=== PATIENT | male | born 1965 | race Caucasian/White ===

== ENCOUNTER 2019-05-17 16:21 | Inpatient (IN) ==
--- NOTE | 2019-05-17 16:49 | PROVIDER DOCUMENTATION ---
HPI-General Adult - General Chief Complaint: Weakness Stated Complaint: GENERALIZED PAIN Time Seen by Provider: 05/17/19 16:37 Source: patient, family Allergies/Adverse Reactions: Patient Allergies Allergy/AdvReac Type Severity Reaction Status Date / Time No Known Allergies Allergy Verified 05/15/19 17:24 Home Medications: Home Medication List Medication Instructions Recorded Confirmed Last Taken Type NK [No Home Medications] 05/15/19 05/17/19 Unknown History - History of Present Illness -Gen Adult Nature of Presenting Problems: 53 yr old M with hx of alcohol abuse, presents with his family for concerns of progressive weakness, and slurred speech for the past several weeks, with acute worsening over the past three days. Pt was recently seen at [facility] and left AMA; lab evaluation there was unremarkable. The pt thinks he may have had a stroke; the pt's family reports that he has had weight loss, weakness, and has been more difficult to understand over the past few days. He drinks daily; liquor of choice is whiskey; he drinks a pint a day, and had some earlier today, though less than what he normally drinks. He denies any chest or abdominal pain; just feels weak all over. Review of Systems - Adult - REVIEW OF SYSTEMS - ADULT Constitutional: reports: see HPI Eyes: reports: double vision Ears, Nose, Mouth & Throat: reports: no symptoms reported Cardiovascular: reports: no symptoms reported Respiratory: reports: no symptoms reported Gastrointestinal: reports: no symptoms reported Genitourinary: reports: no symptoms reported Musculoskeletal: reports: no symptoms reported Integumentary: reports: no symptoms reported Neurological: reports: see HPI Psychiatric: reports: see HPI, alcohol/drug dependence Past History - Adult - PAST MEDICAL HISTORY-ADULT Review of Records: reports: Old Records Reviewed, Nursing Assessment Review Cardiovascular: reports: denies history Respiratory: reports: COPD Gastrointestinal: reports: denies history Genitourinary: reports: denies history Musculoskeletal: reports: chronic pain Neurological: reports: denies history Psychiatric: reports: psychiatric problems Endocrine/Immune: reports: denies history - SOCIAL HISTORY Alcohol Use Frequency: every day Number of drinks per typical drinking period:: 5-10 drinks Living Situation: family Physical Exam-General - PHYSICAL EXAM-ADULT Initial Vital Signs Reviewed: Yes - CONSTITUTIONAL General Appearance: alert, thin, slow to respond - EYES Eyes: PERRL/EOMI - HEAD, EARS, NOSE, MOUTH & THROAT HENMT: normocephalic/atraumatic, moist mucous membranes - RESPIRATORY Respiratory: chest non-tender, lungs clear, normal breath sounds - CARDIOVASCULAR Cardiovascular: regular rate, rhythm - GASTROINTESTINAL (ABDOMEN) Abdominal Exam: normal bowel sounds, non tender, soft - SKIN Integumentary: warm/dry - NEUROLOGIC Neurologic: other (speech is somehwat slurred, can still understand the pt, though with difficulty). negative: facial droop, focal weakness, sensory deficit - PSYCHIATRIC Psych/Mental Status: normal mood/affect, other (oriented to self and place, not time) Progress - PLAN OF CARE/RESULTS Progress/Plan/Lab Results: Vital Signs - 8 hr 05/17/19 16:24 Temperature 98 F Pulse Rate 103 H Respiratory Rate 18 Blood Pressure 144/95 O2 Sat by Pulse Oximetry 100 Result Diagrams: 05/17/19 17:08 05/17/19 17:08 - REASSESSMENT Reassessment #1 Time Reassessed: 19:15 (Other than low Folate, elevated MCV, pt's labs and imagaing are mostly unremarkable for acute processes; had extensive discussion with pt's family at bedside; pt's alcohol level was 0, so there was concern he might go into acute withdrawal; the pt received Ativan for acute stabilization.) - EKG 1 Time of EKG reading by physician:: 17:15 EKG Read and Signed by:: Ethan Mena EKG Interpretation (*Must complete 3 of following elements*): Abnormal Rate: 94 Rhythm: sinus rhythm [place]: normal QRS: normal DC Interval: normal ST Wave: normal - CT/MRI 1 CT Study: Head Impression: See EMR Report CT Results: negative for acute findings - CONSULTS/PCP/HOSPITALIST Notification #1 *Consult/PCP/Hospitalist*: Dr. Duran Time Discussed: 19:30 Consult Disposition: Admit Departure - Departure Date of Disposition Decision: 05/17/19 Time of Disposition Decision: 20:11 DIAGNOSIS: ETOH abuse, Dehydration Disposition: ADMITTED INPATIENT 09 Certified Medical Emergency: Emergent Condition: Fair Referrals and Follow-Ups: None,PCP [Primary Care Provider] - - Critical Care Note This patient required my direct & personal management of CC.: No Attestation - Physician/ JOSE A Attestation Patient care was provided by Advanced Practice Provider:: No The physician spent face to face time with patient:: Yes Advanced Practice Provider documentation review:: Supervising physician onsite and consulted in the evaluation and care of this patient. The physician did have a face to face encounter with the patient.
[2019-05-17 17:41] LABS: BASO# 0.01 X1000 (0.0-0.2); BASO% 0.2 % (0.0-0.8); EOS# 0.02 X1000 (0.0-0.7); EOS% 0.4 % (0.0-10.0); HEMOGLOBIN 12.7 g/dL (14.0-18.0); IMM GRAN# 0.02 X1000 (0.0-0.04); IMM GRAN% 0.4 % (0.0-0.5); LYMPH# 1.61 X1000 (1.2-3.4); LYMPH% 34.3 % (20.5-51.1); MCH 36.2 PG (27-31); MCHC 34.3 g/dL (33-37); MCV 105.4 FL (81-99); MONO% 8.5 % (1.7-9.3); MPV 11.8 FL (7.4-10.4); NEUT# 2.64 X1000 (1.4-6.5); NEUT% 56.2 % (42.2-75.2); PLT 161 X1000 (130-400); RBC 3.51 XMIL (4.7-6.1); RDW 13.1 % (11.5-14.5)
[2019-05-17 18:01] LABS: AGAP 23; ALB/GLOB RATIO 1.9; ALBUMIN 4.4 g/dL (3.5-5.0); ALKALINE PHOSPHATASE 50 U/L (32-122); BUN 15 mg/dL (8-22); CALCIUM 9.8 mg/dL (8.8-10.2); CHLORIDE 90 mmol/L (98-107); COSMO 270; CREATININE 0.9 mg/dL (0.7-1.2); ESTIMATED GFR > 60; GLUCOSE 85 mg/dL (70-104); GOT 35 U/L (10-34); GPT 18 U/L (10-44); POTASSIUM 3.6 mmol/L (3.5-5.1); SODIUM 135 mmol/L (136-145); TCO2 22 mmol/L (25-35); TOTAL PROTEIN 6.7 g/dL (6.3-8.3)
--- NOTE | 2019-05-17 18:05 | Diag Imaging Result Doc PS360 ---
CT HEAD W/O CONTRAST - 05/17/2019 INDICATION: Weakness, Slurred Speech, AMS COMPARISON: None FINDINGS: The ventricles and sulci are normal in size and contour. No intracranial mass or hemorrhage. There is some chronic microvascular ischemia of the cerebral white matter and the rostrum of the corpus callosum. The skull is intact. The sinuses, mastoids, and middle ears are clear. IMPRESSION: Chronic microvascular ischemia. No acute disease. This exam was performed using automated exposure control, adjustment of mA or kV according to patient size, and/or use of iterative reconstruction technique Electronically signed by Chidi Santos 05/17/2019 6:03 PM
[2019-05-17] MEDS ORDERED: FOLIC ACID 1 MG in NS 50 ML IV ONE (18:28)
[2019-05-17 18:36] LABS: URINE SOURCE CATH
[2019-05-17] MEDS ORDERED: ATIVAN IV ONE (18:45)
[2019-05-17] MEDS ORDERED: NICODERM PATCH TD ONE (18:45)
[2019-05-17 18:48] LABS: UR AMPHETAMINES QUAL NONE DETECTED (NONE DETECT); UR BARBITUATES QUAL NONE DETECTED (NONE DETECT); UR BENZODIAZEPIN QUAL NONE DETECTED (NONE DETECT); UR CANNABINOIDS QUAL NONE DETECTED (NONE DETECT); UR COCAINE QUAL NONE DETECTED (NONE DETECT); UR METHADONE QUAL NONE DETECTED (NONE DETECT); UR OPIATES QUAL NONE DETECTED (NONE DETECT); UR OXYCODONE QUAL NONE DETECTED (NONE DETECT); UR PCP QUAL NONE DETECTED (NONE DETECT)
[2019-05-17 19:01] LABS: BILIRUBIN URINE SMALL (NEGATIVE); BLOOD URINE NEGATIVE (NEGATIVE); COLOR ORANGE; GLUCOSE URINE NEGATIVE (NEGATIVE); KETONE URINE 60 mg/dL (NEGATIVE); LEUKOCYTES URINE NEGATIVE (NEGATIVE); NITRITE URINE NEGATIVE (NEGATIVE); PH URINE 6.5; PROTEIN URINE 50 mg/dL (NEGATIVE); SP GRAVITY URINE 1.034; TURBIDITY URINE CLEAR (CLEAR); UR EPITHELIAL CELLS <10 /HPF (<10); URINE BACTERIA 2+ /HPF; URINE RBC <10 /HPF (<10); URINE WBC <10 /HPF (<10); UROBILINOGEN URINE 6 mg/dL (NORMAL)
[2019-05-17 19:09] LABS: URINE CASTS NONE SEEN; URINE CRYSTALS NONE SEEN; URINE SMALL ROUND CELLS NONE SEEN; URINE YEAST NONE SEEN
[2019-05-17] MEDS ORDERED: THIAMINE 100 MG in NS 50 ML IV ONE (22:22)
[2019-05-17] MEDS ORDERED: TYLENOL PO PRN (22:37)
[2019-05-17] MEDS ORDERED: ZOFRAN IV PRN (22:37)
[2019-05-17] MEDS: NS 1,000 ML IV SCH (22:54)
[2019-05-17] MEDS: ATIVAN IV PRN (23:15)
--- NOTE | 2019-05-18 00:59 | HISTORY AND PHYSICAL ---
PRIMARY CARE PHYSICIAN: None. CHIEF COMPLAINT: Confusion. HISTORY OF PRESENTING ILLNESS: A 53-year-old male with a history of chronic alcoholism, usually drinks about a pint of whiskey per day, who had presented to emergency department with confusion and worsening weakness. As per family, he has not had a drink in several days. They thought that he was having some kind of seizure episode. Patient had tried to get into rehab previously. However, due to lack of insurance he was not able to get into a treatment program. The patient was seen in the ER. He was moderately confused and weak and due to his presenting symptoms he will require admission for further management. The patient is a poor historian, however, and most of the history is obtained from family members. PAST MEDICAL HISTORY: Includes chronic alcoholism. PAST SURGICAL HISTORY: None. ALLERGIES: No known drug allergies. CURRENT MEDICATIONS: None. SOCIAL HISTORY: 40+ pack years history of smoking, history of alcohol use daily mostly whiskey. No history of illicit drug use. FAMILY HISTORY: No history of coronary artery disease. REVIEW OF SYSTEMS: Limited due to patient being confused. PHYSICAL EXAMINATION: GENERAL: The patient is resting comfortably. He is without any respiratory distress. VITAL SIGNS: Temperature 98.0 degrees, pulse 103, respirations 18, blood pressure 144/95. HEENT: Atraumatic, normocephalic. PERRLA. NECK: No masses. CHEST: Clear to auscultation. CARDIOVASCULAR: Regular rate and rhythm. ABDOMEN: Soft, positive bowel sounds. EXTREMITIES: No edema. NEUROLOGIC: He is awake and arousable. GENITOURINARY: No bladder distention. SKIN: Warm. LABORATORIES AND STUDIES: WBCs 4.70, hemoglobin 12.7, hematocrit 37.0, platelets 161,000. Sodium 135, potassium 3.6, chloride 90, CO2 is 22, BUN is 15, creatinine 0.9, glucose 85. Plasma ethanol is negative. CT of the head, chronic microvascular ischemia, no acute disease. ASSESSMENT: A 53-year-old male with a history of chronic alcoholism was brought to the emergency department due to worsening confusion and generalized weakness. Apparently, he has been trying to get into an alcohol treatment program. He has not had a drink in several days or so as per family. He started developing worsening weakness and confusion and subsequently he was brought to the emergency department. In the ED, he was evaluated and due to suspicion of alcohol withdrawal he will need admission for further management. 1. Alcohol withdrawal. 2. Generalized weakness. 3. Ongoing tobacco abuse. PLAN: 1. We will admit patient to medical floor with telemetry. 2. Continue with supportive treatment with IV fluids, IV banana bag, thiamine, folate. 3. We will put patient on Ativan for withdrawal symptoms. 4. We will put nicotine patch if he requires it. 5. Put patient on DVT prophylaxis with SCDs. 6. We will continue to follow, reassess and make further recommendation based on patient's clinical course. cc: Yuriy Duran MD
[2019-05-18] MEDS: ATIVAN IV PRN ×5 (04:45→23:34)
[2019-05-18 07:45] LABS: BASO# 0.01 X1000 (0.0-0.2); BASO% 0.2 % (0.0-0.8); EOS# 0.02 X1000 (0.0-0.7); EOS% 0.4 % (0.0-10.0); HEMATOCRIT 34.1 % (42.0-52.0); HEMOGLOBIN 11.5 g/dL (14.0-18.0); IMM GRAN# 0.03 X1000 (0.0-0.04); IMM GRAN% 0.6 % (0.0-0.5); LYMPH# 2.01 X1000 (1.2-3.4); MCH 35.8 PG (27-31); MCHC 33.7 g/dL (33-37); MCV 106.2 FL (81-99); MONO# 0.42 X1000 (0.11-0.59); MPV 11.8 FL (7.4-10.4); NEUT# 2.18 X1000 (1.4-6.5); NEUT% 46.8 % (42.2-75.2); PLT 149 X1000 (130-400); RBC 3.21 XMIL (4.7-6.1); WBC 4.67 X1000 (4.8-10.8)
[2019-05-18 07:55] LABS: AGAP 21; BUN 13 mg/dL (8-22); CALCIUM 9.2 mg/dL (8.8-10.2); CHLORIDE 96 mmol/L (98-107); COSMO 277; CREATININE 0.8 mg/dL (0.7-1.2); ESTIMATED GFR > 60; GLUCOSE 88 mg/dL (70-104); POTASSIUM 3.7 mmol/L (3.5-5.1); SODIUM 139 mmol/L (136-145); TCO2 22 mmol/L (25-35)
[2019-05-18] MEDS: NS 1,000 ML IV SCH ×2 (09:08→15:43)
--- NOTE | 2019-05-18 09:27 | EKG Report ---
Test Performed on : 05/17/2019 5:11:54 PM Test Reason : ED. NO order in [place] Blood Pressure : / mmHG Vent. Rate : 094 BPM Atrial Rate : 094 BPM P-R Int : 116 ms QRS Dur : 070 ms QT Int : 364 ms P-R-T Axes : 048 072 074 degrees QTc Int : 455 ms Normal sinus rhythm. Possible Anterior infarct , age undetermined Abnormal ECG When compared with ECG of 15-MAY-2019 17:12, (Unconfirmed) No significant change was found Unconfirmed Result
[2019-05-18] MEDS ORDERED: M.V.I.-12 10 ML, FOLIC ACID 1 MG, MAGNESIUM SULFATE 1 GM, THIAMINE 100 MG in NS 1,000 ML IV SCH (16:00)
--- NOTE | 2019-05-18 17:54 | PROGRESS NOTE ---
DATE: 05/18/2019 SUBJECTIVE: Today, Srinivas referred to be doing okay. The brother and the mom were at the bedside. He was for the most part sleepy, will barely open his eyes and then go back to sleep. OBJECTIVE: Vital signs: Blood pressure is 114/75, pulse of 85, respiration is 19, temperature 98 degrees. General: Mr. Douglass is a 53-year-old gentleman. He is in bed. No distress. HEENT: Mucosa is pink and moist. Anicteric. Acyanotic. Neck: Supple. Chest: Good air entry bilaterally. There was no crepitations. No rhonchi. Cardiovascular: Regular rate and rhythm. Abdomen: Soft. Bowel sounds present. Extremities: No pedal edema. Central Nervous System: Patient is sleepy but easily arousable, very lethargic. He just goes back to sleep. LABORATORY DATA: WBC is 4.67, hemoglobin is 11.5, platelet count of 149,000. Chemistry is also reviewed, unremarkable. IMAGING STUDIES: Including a CT scan of the head was unremarkable. ASSESSMENT: 1. Alcohol use and abuse with withdrawal symptoms on admission. 2. Generalized weakness and deconditioning. 3. 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 4. Ongoing tobacco use and abuse. 5. Lower extremity numbness due to paresthesia most likely from longstanding alcohol induced peripheral neuropathy. 6. For now, we will continue with the IV fluids, vitamin and mineral supplements, Ativan and we will schedule 10 mg of Valium. We also added gabapentin as part of the approach as part of the withdrawal protocol and also for his alcohol-induced neuropathy. 7. Macrocytosis with folate deficiency noted. cc: Gary Stein MD
[2019-05-18] MEDS: LIBRIUM PO SCH ×2 (19:41→22:29)
[2019-05-18] MEDS: NEURONTIN PO SCH ×2 (19:42→22:30)
[2019-05-19] MEDS: ATIVAN IV PRN ×5 (04:30→21:40)
[2019-05-19 07:30] LABS: HEMATOCRIT 31.2 % (42.0-52.0); HEMOGLOBIN 10.5 g/dL (14.0-18.0); MCH 36.1 PG (27-31); MCHC 33.7 g/dL (33-37); MCV 107.2 FL (81-99); RBC 2.91 XMIL (4.7-6.1); RDW 12.9 % (11.5-14.5); WBC 3.62 X1000 (4.8-10.8)
[2019-05-19 07:44] LABS: INR 1.01; PROTIME 13.4 Seconds (11.0-16.0)
[2019-05-19 07:53] LABS: AGAP 19; ALB/GLOB RATIO 1.8; ALBUMIN 3.6 g/dL (3.5-5.0); ALKALINE PHOSPHATASE 42 U/L (32-122); BUN 9 mg/dL (8-22); CALCIUM 8.8 mg/dL (8.8-10.2); CHLORIDE 100 mmol/L (98-107); COSMO 277; CREATININE 0.8 mg/dL (0.7-1.2); ESTIMATED GFR > 60; GLUCOSE 80 mg/dL (70-104); GOT 42 U/L (10-34); GPT 18 U/L (10-44); MAGNESIUM 1.6 mg/dL (1.5-2.7); PHOSPHORUS 2.6 mg/dL (2.7-4.5); POTASSIUM 3.5 mmol/L (3.5-5.1); SODIUM 140 mmol/L (136-145); TCO2 21 mmol/L (25-35); TOTAL BILIRUBIN 0.59 mg/dL (0.20-1.00); TOTAL PROTEIN 5.6 g/dL (6.3-8.3)
[2019-05-19] MEDS: LIBRIUM PO SCH ×3 (09:13→17:34)
[2019-05-19] MEDS: NEURONTIN PO SCH ×3 (09:13→21:00)
[2019-05-19] MEDS: CLINIMIX E 4.25%-5% SOLUTION 1,000 ML IV SCH ×2 (11:31→19:41)
[2019-05-19] MEDS: NS 1,000 ML IV SCH (11:31)
[2019-05-19] MEDS: MEGACE LIQUID PO SCH ×3 (11:33→21:00)
[2019-05-19] MEDS: NICODERM PATCH TD SCH ×2 (12:07→17:43)
--- NOTE | 2019-05-19 14:34 | PROGRESS NOTE ---
DATE: 05/19/2019 SUBJECTIVE: This morning Mr. Douglass refers to be doing fairly okay. He continues to be mumbling some words, occasionally not very comprehensive. The mother was at the bedside. According to her, Mr. Douglass got slightly agitated overnight and had to be medicated. OBJECTIVE: Vital Signs: This morning her blood pressure is 111/78, pulse of 63, respirations 16, temperature is 98.8 degrees. Patient is saturating 100% on room air. General exam: Mr. Douglass is a 53-year-old gentleman. He is in bed in no distress. HEENT: Mucosa is pink and dry. Anicteric. Acyanotic. Neck: Neck is supple. Chest: Good air entry bilaterally. There were no crepitations, no rhonchi. Cardiovascular: Regular rate and rhythm. No murmurs, no rubs, no gallops. GI: Abdomen is soft, nontender. Bowel sounds present. No hepatosplenomegaly. 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 Speech not very clear, but he will follow basic commands. He is able to open his mouth and stick out his tongue upon command. He is able to extend his upper extremities upon command and there are no tremors. LABORATORY DATA: WBC is 3.62, hemoglobin is 10.5, platelet count of 135. Chemistry is also reviewed, completely within normal range. CURRENT MEDICATIONS: Have all been reviewed. ASSESSMENT: 1. Alcohol use and abuse with withdrawal symptoms on presentation. We will continue with the current medications. 2. Altered mental status on admission secondary to alcohol withdrawal. 3. Generalized weakness and deconditioning. I will consult physical therapy. 4. Alcohol-induced cachexia with a body mass index of 15.5 associated with protein calorie malnutrition. The patient has been started on Clinimix. We will continue replacing his vitamins and mineral needs. 5. Lower extremity peripheral neuropathy, presumably alcohol induced. Patient is on gabapentin. 6. Ongoing tobacco use and abuse prior to hospitalization. The patient has been counseled, and we have offered nicotine patch. 7. Macrocytosis with folate deficiency. We will continue with replacement. 8. Clinical volume depletion. Will continue with intravenous fluids. 9. Dysarthric speech. I think this is all related to his alcohol use. Unsure if Mr. Douglass has developed Korsakoff. His initial CAT scan was unremarkable. If he continues to slur on his speech, I think we will have to do an MRI for a more critical look at the brain parenchyma. PLAN: So, today Mr. 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 We are going to continue his hydration. We will continue with his caloric and vitamin/mineral replacement, get physical therapy to evaluate Mr. Douglass. We have consulted Social Work and Case Management for possible rehab placement for alcohol abuse. We will re-evaluate Mr. Douglass tomorrow and see how he is doing clinically. cc: Gary Stein MD MTDD
[2019-05-19] MEDS: M.V.I.-12 10 ML, FOLIC ACID 1 MG, MAGNESIUM SULFATE 1 GM, THIAMINE 100 MG in NS 1,000 ML IV SCH (17:33)
[2019-05-20] MEDS: ATIVAN IV PRN ×6 (01:20→23:24)
[2019-05-20] MEDS: CLINIMIX E 4.25%-5% SOLUTION 1,000 ML IV SCH ×2 (05:32→16:23)
[2019-05-20 07:48] LABS: AGAP 14; ALBUMIN 3.6 g/dL (3.5-5.0); BUN 12 mg/dL (8-22); CALCIUM 9.1 mg/dL (8.8-10.2); CHLORIDE 103 mmol/L (98-107); COSMO 284; CREATININE 0.6 mg/dL (0.7-1.2); ESTIMATED GFR > 60; GLUCOSE 126 mg/dL (70-104); MAGNESIUM 1.7 mg/dL (1.5-2.7); PHOSPHORUS 3.4 mg/dL (2.7-4.5); POTASSIUM 3.4 mmol/L (3.5-5.1); SODIUM 142 mmol/L (136-145); TCO2 25 mmol/L (25-35)
[2019-05-20 07:50] LABS: HEMATOCRIT 33.1 % (42.0-52.0); HEMOGLOBIN 11.8 g/dL (14.0-18.0); MCH 37.3 PG (27-31); MCHC 35.6 g/dL (33-37); MCV 104.7 FL (81-99); MPV 12.1 FL (7.4-10.4); RBC 3.16 XMIL (4.7-6.1); RDW 12.8 % (11.5-14.5); WBC 6.05 X1000 (4.8-10.8)
[2019-05-20] MEDS: NEURONTIN PO SCH ×3 (09:52→23:24)
[2019-05-20] MEDS: NICODERM PATCH TD SCH (09:53)
[2019-05-20] MEDS: MEGACE LIQUID PO SCH ×3 (09:53→23:24)
[2019-05-20] MEDS: LIBRIUM PO SCH ×3 (09:53→16:23)
[2019-05-20] MEDS: NS 1,000 ML IV SCH (10:10)
[2019-05-20] MEDS: ASPIRIN PO SCH (14:06)
--- NOTE | 2019-05-20 16:21 | PROGRESS NOTE ---
DATE: 05/20/2019 INTERVAL HISTORY: Patient remains slightly sleepy but awake. Did again have some agitation overnight, but fairly with it this morning. Still having significant difficulty with speech, but what words can be made out seem to be largely appropriate. Follows commands pretty well with right upper extremity and legs, but less so with the left upper extremity. When not being asked to perform specific movements, he seems to use the left arm fairly well, so uncertain how much of this is him not quite understanding. No other acute events. REVIEW OF SYSTEMS: Unable to obtain secondary to patient's mental status. LABS: WBC 6.0, hemoglobin 11.8, hematocrit 33.1, platelets 147,000. Sodium 142, potassium 3.4, bicarb 25, BUN 12, creatinine 0.6, glucose 126. VITAL SIGNS: T-max 98.8 degrees, pulse 82, respirations 18, blood pressure 110/80, O2 saturation 99% on room air. PHYSICAL EXAMINATION: General: No acute distress. Vital signs: As above. HEENT: Normocephalic, atraumatic. Moist mucous membranes. No cervical adenopathy. Cardiovascular: Regular rate and rhythm. No murmurs noted. Pulmonary: Clear to auscultation bilaterally. No wheezing, rales, or rhonchi. Abdomen: Soft, nontender, nondistended. Bowel sounds positive. Extremities: Peripheral pulses intact. No clubbing or cyanosis. Neurologic: Speech markedly slurred. Intermittently follows commands. Appears somewhat weak with the left upper extremity but otherwise, no focal deficits identified. Psychiatric: Patient awake, although sleepy and tends to doze off during conversation level. Following commands intermittently. Seems to do better with commands to the right upper extremity than to the left. Does answer orientation questions appropriately, although it is quite difficult to understand his speech and his responses tend to be quite short. ASSESSMENT AND PLAN: 1. Alcohol abuse and withdrawal. Continue withdrawal medications. Uncertain how much of his current symptoms are due to withdrawal versus other etiology. Continue to monitor. 2. Toxic encephalopathy. On admission, likely due to alcohol abuse and withdrawal. Some concern for Wernicke-Korsakoff syndrome. 3. Slurred speech and possible left upper extremity weakness. Patient still with markedly slurred speech, although mental status is quite a bit improved. Difficult for me to tell whether he is truly weak in the left upper extremity or if he is just not following commands well all the time. But as this is ongoing and he may have some focal weakness, we are going to go ahead and put him on aspirin and get an MRI in the morning. 4. Cachexia, alcohol induced. BMI 15.5. For the last 3 years has been mostly drinking with little nutritional intake otherwise. On Clinimix currently. Starting to wake up. We will see how much we can get him to eat. If his mental status continues to be an issue, may have to consider other options. 5. Tobacco abuse. Patient has been counseled on cessation. We will discuss again when his mental status is better. 6. Anemia. Likely nutritional with folate deficiency noted. No signs or symptoms of active bleeding noted. Continue to monitor labs. 7. Dehydration. Improved with IV fluids. 8. Peripheral neuropathy. Continue home gabapentin at low dose for now but if he continues to be too sedated, may have to hold that.
[2019-05-20] MEDS: M.V.I.-12 10 ML, FOLIC ACID 1 MG, MAGNESIUM SULFATE 1 GM, THIAMINE 100 MG in NS 1,000 ML IV SCH (16:23)
[2019-05-21] MEDS: ATIVAN IV PRN ×5 (03:28→22:32)
[2019-05-21] MEDS: CLINIMIX E 4.25%-5% SOLUTION 1,000 ML IV SCH ×2 (03:28→11:49)
[2019-05-21] MEDS: MEGACE LIQUID PO SCH ×2 (08:10→20:34)
[2019-05-21] MEDS: NICODERM PATCH TD SCH (08:10)
[2019-05-21] MEDS: ASPIRIN PO SCH (08:10)
[2019-05-21] MEDS: LIBRIUM PO SCH ×4 (08:10→20:34)
[2019-05-21] MEDS: NEURONTIN PO SCH ×2 (08:10→20:34)
--- NOTE | 2019-05-21 10:47 | Diag Imaging Result Doc PS360 ---
EXAM: MRI BRAIN W/O CONTRAST HISTORY: slurred speech. ? LUE weakness. TECHNIQUE: MRI brain without contrast. Axial, sagittal, and coronal images obtained in multiple sequences. COMPARISON: CT from 05/17/2019 FINDINGS: No recent infarct. Minimal chronic microvascular ischemic changes. No mass or midline shift. No hydrocephalus. No ureteral or subdural fluid collection. No sinus opacification. Normal orbits. IMPRESSION: No recent infarct. Electronically signed by Paulo Camara 05/21/2019 10:45 AM
[2019-05-21] MEDS: NS 1,000 ML IV SCH (11:49)
[2019-05-21] MEDS: POTASSIUM CHLORIDE 20 MEQ/SWI 20 MEQ/100 ML IVPB IV SCH ×2 (13:32→15:33)
[2019-05-21] MEDS: M.V.I.-12 10 ML, FOLIC ACID 1 MG, MAGNESIUM SULFATE 1 GM, THIAMINE 100 MG in NS 1,000 ML IV SCH (17:12)
--- NOTE | 2019-05-21 18:13 | PROGRESS NOTE ---
DATE: 05/21/2019 INTERVAL HISTORY: Patient's mental status continues to improve slowly. Still pretty sleepy but speech a little clearer, although still somewhat slurred. Much more cooperative with the left upper extremity and strength more symmetric. P.o. intake still only slightly improved, however. REVIEW OF SYSTEMS: Twelve point review of systems negative except as per interval history. VITAL SIGNS: T-max 98.8 degrees, pulse 82, respirations 16, blood pressure 117/83, O2 saturation 99% on room air. IMAGING: MRI brain essentially unremarkable. PHYSICAL EXAMINATION: General: No acute distress. Vital signs: As above. HEENT: Normocephalic, atraumatic. Moist mucous membranes. Cardiovascular: Regular rate and rhythm. No murmurs noted. Pulmonary: Clear to auscultation bilaterally. No wheezing, rales, or rhonchi. Abdomen: Soft, nontender, nondistended. Bowel sounds positive. Extremities: Peripheral pulses intact. No clubbing or cyanosis. Neurologic: Slurring of speech quite a bit improved. Following commands better, although does require repeat prompting sometimes. Strength more symmetric than previous. No new focal deficits identified. Psychiatric: Patient awake, although sleepy. Still dozing off during conversation intermittently. Following commands a little better. Does answer orientation questions appropriately and speech is a little easier to understand. Responses remain quite terse with little to no spontaneous verbalization. ASSESSMENT AND PLAN: 1. Alcohol abuse and withdrawal. Continue withdrawal medications. Approaching end of his Librium taper. MRI obtained given continued slurred speech and possible left upper extremity weakness yesterday, but MRI negative and symptoms appear to be improving, so likely all related to alcohol withdrawal and the sedating medications necessary to control his withdrawal. 2. Toxic encephalopathy. Noted on admission. Improving although still somewhat present. Likely due to alcohol abuse and withdrawal. Some concern for Wernicke-Korsakoff , but MRI unremarkable and patient improving, although slowly. 3. Slurred speech, possible left upper extremity weakness. Some concern for stroke, but MRI negative, as above. Likely all due to his encephalopathy. Improving slowly. 4. Cachexia, severe protein calorie malnutrition. Likely due to alcohol abuse and poor p.o. intake. BMI 15.5 on admission. Poor p.o. intake for 3 years other than alcohol. On Clinimix currently. Waking up slowly and has had slightly better p.o. intake today, but still remains fairly poor overall. 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 Otherwise, may need to consider other options, possibly including feeding tube. 5. Tobacco abuse. Patient has been counseled on cessation but will need to repeat again once his mental status is further improved. 6. Anemia. Likely nutritional with folate deficiency noted. Continue replacement. 7. Dehydration. Essentially resolved now with IV fluid. 8. Peripheral neuropathy. Continue home low-dose gabapentin. 9. Deconditioning, likely related to alcohol abuse and malnutrition. Working with PT somewhat. We will see how he does over the next few days as he continues to wake up. Pending how he does, may or may not need rehab placement.
[2019-05-22] MEDS: CLINIMIX E 4.25%-5% SOLUTION 1,000 ML IV SCH ×3 (00:37→17:12)
[2019-05-22] MEDS: ASPIRIN PO SCH (08:31)
[2019-05-22] MEDS: LIBRIUM PO SCH ×2 (08:31→23:24)
[2019-05-22] MEDS: NEURONTIN PO SCH ×2 (08:31→23:24)
[2019-05-22] MEDS: NICODERM PATCH TD SCH ×2 (08:31→16:59)
[2019-05-22] MEDS: MEGACE LIQUID PO SCH ×2 (08:31→23:25)
[2019-05-22 13:06] LABS: BASO# 0.01 X1000 (0.0-0.2); BASO% 0.2 % (0.0-0.8); EOS# 0.03 X1000 (0.0-0.7); EOS% 0.5 % (0.0-10.0); HEMATOCRIT 30.1 % (42.0-52.0); HEMOGLOBIN 10.1 g/dL (14.0-18.0); IMM GRAN# 0.02 X1000 (0.0-0.04); IMM GRAN% 0.3 % (0.0-0.5); LYMPH# 1.53 X1000 (1.2-3.4); LYMPH% 25.8 % (20.5-51.1); MCH 35.7 PG (27-31); MCHC 33.6 g/dL (33-37); MCV 106.4 FL (81-99); MONO# 0.77 X1000 (0.11-0.59); MPV 11.9 FL (7.4-10.4); NEUT# 3.57 X1000 (1.4-6.5); NEUT% 60.2 % (42.2-75.2); PLT 165 X1000 (130-400); RBC 2.83 XMIL (4.7-6.1); RDW 13.6 % (11.5-14.5); WBC 5.93 X1000 (4.8-10.8)
[2019-05-22 13:26] LABS: AGAP 12; BUN 20 mg/dL (8-22); CALCIUM 9.2 mg/dL (8.8-10.2); CHLORIDE 104 mmol/L (98-107); COSMO 283; CREATININE 0.7 mg/dL (0.7-1.2); ESTIMATED GFR > 60; GLUCOSE 108 mg/dL (70-104); POTASSIUM 4.4 mmol/L (3.5-5.1); SODIUM 140 mmol/L (136-145); TCO2 24 mmol/L (25-35)
--- NOTE | 2019-05-22 16:09 | PROGRESS NOTE ---
DATE: 05/22/2019 INTERVAL HISTORY: Patient with slow but steady improvement in his mental status. Answering occasionally with two words now. Slurred speech continues to gradually improve as well. Still pretty weak throughout. Has complained to his mother about nicotine cravings despite his current 14 mg patch. No acute events overnight. No other new complaints. REVIEW OF SYSTEMS: Twelve point review of systems negative except as per interval history. LABS: WBC 5.9, hemoglobin 10.1, hematocrit 30.1, platelets 165,000. Sodium 140, potassium 4.4, bicarb 24, BUN 20, creatinine 0.7, glucose 108. VITALS: Temperature maximum 98.4 degrees, pulse 80, respirations 18, blood pressure 115/83, O2 saturation 100% on room air next. PHYSICAL EXAMINATION: General: No acute distress. Vitals: As above. HEENT: Normocephalic, atraumatic. Moist mucous membranes. Cardiovascular: Regular rate and rhythm. No murmurs noted. Pulmonary: Clear to auscultation bilaterally. No wheezing, rales, or rhonchi. Abdomen: Soft, nontender, nondistended. Bowel sounds positive. Extremities: Peripheral pulses intact. No clubbing or cyanosis. Neurologic: Slurring of speech still present but continues to improve slowly. Still globally weak but strength pretty symmetric at this point. No new focal deficits. Psychiatric: Patient awake, fairly alert, although sometimes requires repeated prompting to sort of zone in and to answer questions or perform commands. Affect remains quite flat. Still little to no spontaneous verbalization, although he is doing pretty well with prompting, as above. ASSESSMENT AND PLAN: 1. Alcohol abuse and withdrawal. Continue withdrawal medications, but today should be his last day of Librium. MRI without evidence of stroke or clear Wernicke-Korsakoff syndrome. Speech and mental status do appear to be improving, although quite slowly. Will continue minimizing sedating medications as much as we can and hopefully he will continue to improve. 2. Toxic encephalopathy. Noted on admission. Improving slowly as above, likely due to alcohol abuse and withdrawal. 3. Cachexia, severe protein calorie malnutrition. Likely due to alcohol abuse and poor oral intake for a prolonged period of time. BMI 15.5 on admission. On Clinimix currently. A little better oral intake over the last couple of days, but overall nutritional status remains quite poor. Intake thus far has been most limited to sugar. We will try to encourage protein intake and monitor. 4. Tobacco abuse. The patient has been counseled on cessation. Complaining of cravings on 14 mg patch. Will increase patch to 21 and monitor. 5. Dehydration resolved with intravenous fluids. 6. Anemia, likely nutritional with folate deficiency. Continue replacement. Iron studies pending. 7. Peripheral neuropathy. Continue home low-dose gabapentin. 8. Deconditioning, likely related to alcohol abuse and malnutrition. Still remains quite weak globally. We will see how he does with physical therapy as his mental status continues to improve. Ideally would likely need rehab placement, but patient with no insurance and that is unlikely to be an option. We will do as much therapy as we can prior to discharge and see where we end up and what options there may be.
[2019-05-22] MEDS: NS 1,000 ML IV SCH (17:02)
[2019-05-22] MEDS: M.V.I.-12 10 ML, FOLIC ACID 1 MG, MAGNESIUM SULFATE 1 GM, THIAMINE 100 MG in NS 1,000 ML IV SCH (17:12)
[2019-05-23] MEDS: CLINIMIX E 4.25%-5% SOLUTION 1,000 ML IV SCH ×3 (03:03→13:50)
[2019-05-23 08:11] LABS: AGAP 12; ALBUMIN 3.3 g/dL (3.5-5.0); BUN 25 mg/dL (8-22); CHLORIDE 106 mmol/L (98-107); COSMO 284; CREATININE 0.8 mg/dL (0.7-1.2); ESTIMATED GFR > 60; GLUCOSE 137 mg/dL (70-104); PHOSPHORUS 4.8 mg/dL (2.7-4.5); POTASSIUM 4.4 mmol/L (3.5-5.1); SODIUM 139 mmol/L (136-145); TCO2 21 mmol/L (25-35)
[2019-05-23] MEDS: NS 1,000 ML IV SCH (10:52)
[2019-05-23] MEDS: NEURONTIN PO SCH ×2 (10:55→22:33)
[2019-05-23] MEDS: MEGACE LIQUID PO SCH ×2 (10:55→22:33)
[2019-05-23] MEDS: NICODERM PATCH TD SCH (10:55)
[2019-05-23] MEDS: ASPIRIN PO SCH (10:55)
[2019-05-23 11:22] LABS: IRON SATURATION 20 %; TIBC 163 ug/dL; TOTAL IRON 33 ug/dL (53-167); UNBOUND IRON 130 ug/dL (112-346)
[2019-05-23] MEDS ORDERED: MILK OF MAGNESIA PO PRN (11:39)
[2019-05-23] MEDS: MIRALAX PO SCH ×2 (12:28→22:33)
--- NOTE | 2019-05-23 13:14 | PROGRESS NOTE ---
DATE: 05/23/2019 INTERVAL HISTORY: The patient 's speech quite a bit improved today; actually putting sentences together. Mental status also continues to improve slowly. Diet a little better. Still kind of fixated on sweets, but the amount of his p.o. intake is quite a bit improved. No acute events overnight. No other new complaints. Remains pretty weak, especially in the lower extremities. REVIEW OF SYSTEMS: Twelve point review of systems negative, except as per interval history. LABS: Sodium 139, potassium 4.4. BUN 25, creatinine 0.8, glucose 137. VITALS: T-max 98.5 degrees, pulse 82, respirations 16, blood pressure 93/64m O2 saturation 99% on room air. PHYSICAL EXAMINATION: General: No acute distress. Chronically ill appearing. Vitals: As above. HEENT: Normocephalic, atraumatic. Moist mucous membranes. Cardiovascular: Regular rate and rhythm. No murmurs noted. Pulmonary: Clear to auscultation bilaterally. No wheezing, rales, or rhonchi. Abdomen: Soft, nontender, nondistended. Bowel sounds positive. Extremities: Peripheral pulses intact. No clubbing or cyanosis. Neurologic: Slurring of speech, almost resolved. Speech remains slow, globally weak, a little more in the bilateral lower extremities. No new focal deficits. Psychiatric: Patient awake, alert. Far more communicative, pretty cooperative today, slightly less flat affect. ASSESSMENT AND PLAN: 1. Alcohol abuse withdrawal. Weaned off of Librium. MRI without evidence of stroke or clear evidence of Wernicke-Korsakoff syndrome. Speech and mental status improving; speech actually quite a bit better today. Continue supportive care. 2. Toxic encephalopathy noted on admission. Improvement has been slow, but beginning to approach baseline. Continue to monitor. 3. Cachexia, severe protein calorie malnutrition, asthenia. Likely due to alcohol abuse, poor oral intake for a prolonged period of time, approximately 3 years. Body mass index 15.5 on admission. He is on Clinimix currently. Amount of oral intake has improved quite a bit over the last couple days, but still mostly candy brought in by his family. Discussed the importance of getting some protein and vitamins in him. Since his mental status is improving, we may have it a little more likely of getting him to eat something with some nutrition to it. Continue to work with physical therapy. Try to mobilize patient as he is self-pay, and rehabilitation is probably not an option. 4. Tobacco abuse. Patient reports less craving since being bumped up to 21 mg patch. Continue to monitor. 5. Dehydration, resolved with intravenous fluids. 6. Anemia likely nutritional with folate deficiency, iron levels borderline, but since his oral intake is beginning to improve, we will hold off on replacement for now. 7. Peripheral neuropathy. Continue home low-dose gabapentin. DISPOSITION: Likely home once his oral intake is reasonable and he is able to ambulate with a walker. Ideally to go to rehab, but with no insurance it is likely not an option.
[2019-05-23] MEDS: M.V.I.-12 10 ML, FOLIC ACID 1 MG, MAGNESIUM SULFATE 1 GM, THIAMINE 100 MG in NS 1,000 ML IV SCH (16:20)
[2019-05-24] MEDS: CLINIMIX E 4.25%-5% SOLUTION 1,000 ML IV SCH ×2 (02:45→13:30)
[2019-05-24 07:40] LABS: AGAP 13; ALBUMIN 3.7 g/dL (3.5-5.0); BUN 25 mg/dL (8-22); CALCIUM 9.5 mg/dL (8.8-10.2); CHLORIDE 105 mmol/L (98-107); COSMO 284; CREATININE 0.9 mg/dL (0.7-1.2); ESTIMATED GFR > 60; GLUCOSE 101 mg/dL (70-104); PHOSPHORUS 5.3 mg/dL (2.7-4.5); POTASSIUM 5.5 mmol/L (3.5-5.1); SODIUM 140 mmol/L (136-145); TCO2 22 mmol/L (25-35)
[2019-05-24] MEDS: MIRALAX PO SCH ×2 (08:53→22:31)
[2019-05-24] MEDS: MEGACE LIQUID PO SCH ×2 (08:53→22:31)
[2019-05-24] MEDS: NEURONTIN PO SCH ×2 (08:53→22:31)
[2019-05-24] MEDS: NICODERM PATCH TD SCH (08:53)
[2019-05-24] MEDS: ASPIRIN PO SCH (08:53)
--- NOTE | 2019-05-24 15:45 | PROGRESS NOTE ---
DATE: 05/24/2019 INTERVAL HISTORY: No acute events overnight. SUBJECTIVE: Mr. Douglass denies any new complaints. He was able to work with physical therapy today and walk up to the door, but he needed a lot of help, walker and physical therapy's support. He feels significantly weak as per the family members at bedside. Patient denies any chest pain or shortness of breath, any cough. He states he was able to eat a little bit today, probably 25% of his meals. We discussed about discontinuing IV nutrition and watching him for 24 hours. VITAL SIGNS: Temperature 98.4 degrees, pulse 93, respiratory rate 16, blood pressure 92/65. He is saturating 100% on room air. PHYSICAL EXAMINATION: General: He is not in any acute distress, cachectic. HEENT: Oral cavity is moist. Lungs: Air entry bilaterally equal. No wheeze, rhonchi, crackles. Cardiovascular: S1, S2 normal. No murmur or gallop. Abdomen: Soft, nontender. Extremities: No lower extremity edema. Skin: He had generalized scaling of his skin. Neurologic: He is alert. He is answering most questions appropriately. He is able to lift both upper and lower extremities above ground level while lying down. LABS: Suggestive of a potassium of 5.5. He has slightly elevated BUN and creatinine. MICROBIOLOGY: His urine was growing a bacteria, though he denies any urinary symptoms on my encounter. ASSESSMENT AND PLAN: 1. Alcohol use disorder with alcohol withdrawal on presentation. MRI did not have clear evidence of Wernicke-Korsakoff syndrome. He has been off Librium. He is currently alert, though he does have intermittent confusion. However, his toxic and acute encephalopathy appears to have resolved. I will continue him on megestrol for appetite stimulation, thiamine and multivitamin and mechanical soft oral diet. I also encouraged him to continue to take adequate oral fluids. I will stop intravenous fluids and intravenous Clinimix today. I will keep him on MiraLAX to avoid constipation. I will also start him on enoxaparin for DVT prophylaxis. 2. 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 Patient has been started on gabapentin which I will continue. 3. Tobacco abuse. Continue nicotine patch. 4. Likely folate deficiency, nutritional anemia. Continue multivitamin with folic acid supplementation. 5. Disposition. My plan is to watch the patient for worsening electrolytes without intravenous fluids. I want to make sure he does not develop acute kidney injury with a rise in BUN tomorrow. If he is able to maintain adequate oral intake, the patient could be discharged in next 24 to 48 hours, depending on functional status. Plan of care discussed with the patient and his family. His family member at bedside currently is concerned that he may not be ready for discharge and is requesting to keep patient inside the hospital for a few more days and I explained to her that we would take 1 day at a time, though definitely he was not ready today for discharge. cc: Edmund Lynch MD MTDD
[2019-05-24] MEDS: LOVENOX SUBQ SCH (22:31)
[2019-05-25 08:08] LABS: AGAP 13; BUN 21 mg/dL (8-22); CALCIUM 9.8 mg/dL (8.8-10.2); CHLORIDE 102 mmol/L (98-107); COSMO 277; CREATININE 0.9 mg/dL (0.7-1.2); ESTIMATED GFR > 60; GLUCOSE 109 mg/dL (70-104); POTASSIUM 5.1 mmol/L (3.5-5.1); SODIUM 137 mmol/L (136-145); TCO2 22 mmol/L (25-35)
[2019-05-25] MEDS: NICODERM PATCH TD SCH (08:59)
[2019-05-25] MEDS: VITAMIN B-1 PO SCH (08:59)
[2019-05-25] MEDS: THERA M PLUS PO SCH (08:59)
[2019-05-25] MEDS: MIRALAX PO SCH ×2 (08:59→20:12)
[2019-05-25] MEDS: MEGACE LIQUID PO SCH ×2 (08:59→20:12)
[2019-05-25] MEDS: NEURONTIN PO SCH ×2 (09:00→20:11)
[2019-05-25] MEDS: ASPIRIN PO SCH (09:00)
--- NOTE | 2019-05-25 16:48 | PROGRESS NOTE ---
DATE: 05/25/2019 SUBJECTIVE: Patient reports feeling fine. According to nursing staff, the patient continues to be profoundly weak and needs assistance from Physical Therapy to put him in the bed. OBJECTIVE: Vital Signs: Temperature is 98.2 degrees, heart rate 91, respiratory rate 18, blood pressure 93/63, O2 saturation 100% on room air. General: This is a chronically ill-appearing and malnourished, 53-year-old, male, lying in bed in no acute distress. Cardiovascular: S1, S2 heard. No murmurs, gallops, or rubs. Regular rate and rhythm. Respiratory: Clear bilaterally to auscultation. No work of breathing or using accessory muscles. Abdomen: Soft, nontender to palpation. Bowel sounds present. No organomegaly. Extremities: No clubbing, cyanosis, or edema. Peripheral pulses present in both legs. Skin: There is generalized scaling of the skin. Neurological: Patient is awake, alert. Moves 4 extremities spontaneously. LABORATORY DATA: No CBC recently done and BMP is unremarkable. ASSESSMENT AND PLAN: 1. Alcohol use disorder with alcohol withdrawal on presentation. The patient is feeling very weak. MRI that we have done a few days ago, did rule out Wernicke-Korsakoff syndrome. At this time, I am planning to continue with megestrol for appetite stimulation, thiamine, multivitamins, and patient is on a GI soft diet. Clinimix has been stopped. We will continue with same management. 2. 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 The patient is on gabapentin. We will continue to monitor. 3. Tobacco abuse. We will continue with nicotine patch. 4. Folate deficiency and nutritional anemia. We will continue with multivitamins. 5. Disposition. The patient definitely needs to go to rehab, but he does not have any insurance. So, one option that we have is to send this patient to [facility] [place] to continue receiving physical therapy and occupational therapy. cc: Josef Pierson MD
[2019-05-25] MEDS: LOVENOX SUBQ SCH (20:11)
[2019-05-26 08:07] LABS: AGAP 14; ALBUMIN 3.9 g/dL (3.5-5.0); BUN 27 mg/dL (8-22); CALCIUM 9.9 mg/dL (8.8-10.2); CHLORIDE 102 mmol/L (98-107); COSMO 283; ESTIMATED GFR > 60; GLUCOSE 107 mg/dL (70-104); MAGNESIUM 2.1 mg/dL (1.5-2.7); PHOSPHORUS 5.6 mg/dL (2.7-4.5); POTASSIUM 4.9 mmol/L (3.5-5.1); SODIUM 139 mmol/L (136-145); TCO2 23 mmol/L (25-35)
[2019-05-26] MEDS: MIRALAX PO SCH ×2 (09:51→20:05)
[2019-05-26] MEDS: NICODERM PATCH TD SCH (09:51)
[2019-05-26] MEDS: MEGACE LIQUID PO SCH ×2 (09:52→20:04)
[2019-05-26] MEDS: ASPIRIN PO SCH (09:52)
[2019-05-26] MEDS: VITAMIN B-1 PO SCH (09:52)
[2019-05-26] MEDS: THERA M PLUS PO SCH (09:52)
[2019-05-26] MEDS: NEURONTIN PO SCH ×2 (09:52→20:04)
--- NOTE | 2019-05-26 12:07 | PROGRESS NOTE ---
DATE: 05/26/2019 SUBJECTIVE: Patient reports feeling fine. Reports still feeling profoundly weak. Denies any other complaints. OBJECTIVE: Vital Signs: Temperature 97.3 degrees, heart rate 100, respiratory rate 18, blood pressure 107/77, O2 saturation 100% on room air. General Examination: This is a chronically ill-appearing and malnourished, 54-year-old male, lying in bed in no acute distress. Cardiovascular exam: S1, S2 heard. No murmurs, gallops, or rubs. Regular rate and rhythm. Respiratory exam: Clear bilaterally to auscultation. No work of breathing or using accessory muscles. Abdomen: Soft, nontender to palpation. Bowel sounds present. No organomegaly. Extremities: No clubbing, cyanosis, or edema. Peripheral pulses present in both legs. Skin: There is generalized scaling of the skin. Neurological exam: Patient is awake, alert, moves 4 extremities. LABORATORY DATA: Reviewed. ASSESSMENT AND PLAN: 1. Alcohol abuse with alcohol withdrawal on presentation. This patient is feeling much better, but feeling very weak. MRI of the brain has been done a few days ago to rule out Wernicke- Korsakoff, but has been unremarkable. At this point, we will continue multivitamins and Megestrol for appetite stimulation. We will continue with same management. 2. Alcohol neuropathy. We will continue with gabapentin. 3. Tobacco abuse. Patient is on nicotine patch. We will continue to monitor. 4. Folate deficiency. Nutritional anemia. We will continue with multivitamin. 5. Disposition: The patient definitely needs to go to rehabilitation because he is profoundly weak. Because he does not have any insurance, we will send this patient to [facility] to continue receiving physical therapy and occupational therapy as well. cc: Josef Pierson MD
[2019-05-26] MEDS: LOVENOX SUBQ SCH (20:04)
[2019-05-27 06:54] LABS: AGAP 13; ALBUMIN 3.9 g/dL (3.5-5.0); BUN 31 mg/dL (8-22); CALCIUM 9.7 mg/dL (8.8-10.2); CHLORIDE 105 mmol/L (98-107); COSMO 283; CREATININE 0.9 mg/dL (0.7-1.2); ESTIMATED GFR > 60; GLUCOSE 113 mg/dL (70-104); PHOSPHORUS 5.4 mg/dL (2.7-4.5); POTASSIUM 4.3 mmol/L (3.5-5.1); SODIUM 138 mmol/L (136-145); TCO2 20 mmol/L (25-35)
[2019-05-27] MEDS: NEURONTIN PO SCH ×2 (09:14→21:04)
[2019-05-27] MEDS: NICODERM PATCH TD SCH (09:14)
[2019-05-27] MEDS: MEGACE LIQUID PO SCH ×2 (09:14→21:04)
[2019-05-27] MEDS: VITAMIN B-1 PO SCH (09:14)
[2019-05-27] MEDS: THERA M PLUS PO SCH (09:14)
[2019-05-27] MEDS: MIRALAX PO SCH ×2 (09:15→21:04)
[2019-05-27] MEDS: ASPIRIN PO SCH (11:26)
--- NOTE | 2019-05-27 12:29 | PROGRESS NOTE ---
DATE: 05/27/2019 SUBJECTIVE: The patient has no complaints. States that he feels okay. He is still very weak. PHYSICAL EXAMINATION: Vital Signs: Temperature 98 degrees, pulse 79, respiratory rate 18, BP 166/66. General: The patient is awake. He is pleasant. He is in no respiratory distress. HEENT: Normocephalic. Neck: Supple. Cardiovascular: Regular rate. Chest: Clear. Nonlabored. Abdomen: Soft. Extremities: No edema. ASSESSMENT: 1. Adult failure to thrive with generalized weakness. 2. Alcoholic neuropathy. 3. Tobacco abuse. 4. Folate deficiency. 5. Chronic alcohol abuse with recent withdrawal. PLAN: We are going to continue the patient in the hospital. Continue physical therapy. Further orders as needed. cc: Kemar Mendenhall MD
[2019-05-27 17:07] LABS: HEMATOCRIT 32.2 % (42.0-52.0); HEMOGLOBIN 10.4 g/dL (14.0-18.0)
[2019-05-27] MEDS ORDERED: SODIUM CHLORIDE 0.9% INJ SCH (17:30)
[2019-05-27] MEDS: NS 1,000 ML IV SCH (18:08)
[2019-05-27] MEDS: PROTONIX IV SCH (18:08)
[2019-05-28] MEDS: PROTONIX IV SCH (05:51)
[2019-05-28] MEDS ORDERED: XARELTO PO SCH (06:00)
[2019-05-28 06:24] LABS: AGAP 12; ALBUMIN 3.5 g/dL (3.5-5.0); BUN 22 mg/dL (8-22); CHLORIDE 108 mmol/L (98-107); COSMO 283; CREATININE 0.8 mg/dL (0.7-1.2); ESTIMATED GFR > 60; GLUCOSE 107 mg/dL (70-104); PHOSPHORUS 3.9 mg/dL (2.7-4.5); POTASSIUM 4.2 mmol/L (3.5-5.1); SODIUM 140 mmol/L (136-145); TCO2 20 mmol/L (25-35)
[2019-05-28] MEDS: NS 1,000 ML IV SCH (06:29)
[2019-05-28] MEDS: THERA M PLUS PO SCH (08:35)
[2019-05-28] MEDS: VITAMIN B-1 PO SCH (08:35)
[2019-05-28] MEDS: MEGACE LIQUID PO SCH ×2 (08:35→21:23)
[2019-05-28] MEDS: NEURONTIN PO SCH ×2 (08:35→21:23)
[2019-05-28] MEDS: NICODERM PATCH TD SCH (08:35)
[2019-05-28] MEDS: MIRALAX PO SCH ×2 (10:59→21:26)
[2019-05-28 18:56] LABS: OCCULT BLOOD 1 POSITIVE (NEGATIVE)
--- NOTE | 2019-05-28 22:14 | PROGRESS NOTE ---
DATE: 05/28/2019 SUBJECTIVE: Patient notes he feels okay. He is still fatigued. OBJECTIVE: Vital signs: Temperature 98 degrees, pulse 68, respiratory rate 18, BP 107/69. General: Patient is pleasant. He is in no distress. HEENT: Normocephalic. Neck: Supple. Cardiovascular: Regular rate. Chest: Clear. Abdomen: Soft. Extremities: Moves all extremities. ASSESSMENT: 1. Adult failure to thrive with generalized weakness. 2. Chronic alcoholism, recent withdrawal. PLAN: We are going to continue in the hospital, continue physical therapy. cc: Kemar Mendenhall MD
[2019-05-29 07:33] VITALS: BP 108/69
[2019-05-29] MEDS: VITAMIN B-1 PO SCH (08:47)
[2019-05-29] MEDS: NICODERM PATCH TD SCH (08:47)
[2019-05-29] MEDS: THERA M PLUS PO SCH (08:47)
[2019-05-29] MEDS: NEURONTIN PO SCH (08:48)
[2019-05-29] MEDS: MEGACE LIQUID PO SCH (08:48)
[2019-05-29] MEDS: MIRALAX PO SCH (08:49)
[2019-05-29] MEDS ORDERED: NICOTINE GUM BUCCAL PRN (08:53)
[2019-05-29] MEDS ORDERED: PEPCID PO SCH (09:00)
--- NOTE | 2019-05-29 15:25 | DISCHARGE SUMMARY ---
ADMISSION DATE: 05/17/2019 DISCHARGE DATE: 05/29/2019 PRIMARY CARE PHYSICIAN: None. ADMISSION DIAGNOSES: 1. Alcohol withdrawal. 2. Generalized weakness. 3. Ongoing tobacco abuse. DISCHARGE DIAGNOSES: 1. Adult failure to thrive with generalized weakness. 2. Chronic alcoholism with recent withdrawal. SUMMARY OF FINDINGS: This is a 53-year-old male who presented to the ER with confusion and worsening weakness. Family stated that he had not had a drink in several days. They thought he was having some type of seizure episode. The patient had tried to go into rehab previously, but due to lack of insurance was not able to get into a treatment program. He was moderately confused and weak when he arrived, so he was admitted and given Ativan p.r.n. for withdrawals and nicotine patch. We did do a CT of the head on arrival that showed chronic microvascular ischemia, but no acute disease. We did a brain MRI on 05/21/2019 that showed no recent infarct. He had physical therapy. It is now felt that he can safely be discharged home. He will have home health services. His discharge medications will include gabapentin 200 mg p.o. b.i.d. #60 with no refills, nicotine patch 21 mg transdermally daily, and thiamine 100 mg p.o. daily. We have discussed alcohol cessation with this patient who verbalizes understanding. TIME SPENT: A 35-minute discharge. Dictated by REX Werner for Kemar Mendenhall MD cc: REX Werner MD
--- NOTE | 2019-05-29 17:28 | DISCHARGE SUMMARY ---
ADMISSION DATE: 05/17/2019 DISCHARGE DATE: 05/29/2019 ADDENDUM: The patient seen and examined by myself. Full note dictated and discussed with nurse practitioner. The patient presented to the hospital secondary to alcohol abuse and withdrawal. Unfortunately, he has had a prolonged hospital course secondary to generalized weakness. He certainly needs rehab, but he has no insurance making that next to impossible. He did have a little bit of hemorrhoidal bleeding recently that has stopped. His hemoglobin and hematocrit have remained stable. Blood pressures are stable. Today the patient stated that he was not staying in the hospital any longer and that he was going home. We attempted to discuss with him that he is quite weak and he still needs assistance. He states that he has help at home. His younger brother will help him. But regardless he was not staying in the hospital. As the patient is awake, alert, oriented and he is medically stable although does have general fatigue and weakness, we are going to discharge him home instead of forcing him to sign out AMA. cc: Kemar Mendenhall MD
== END 2019-05-29 12:45 | disposition home health service (06) ==
LOC: SUPCPDRO → ED 16:21 → 3N 21:50 → SUATTDRO 21:50 → P.MEDSURG 05-26 16:18
PROVIDERS: ATTEND Family Medicine